=== PATIENT | male | born 1995 | race Caucasian/White ===

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

== ENCOUNTER 2018-05-03 17:09 | Emergency (ER) | payer OTHER ==
[~2018-05-03] VITALS: Ht 172.7 cm; Wt 99.8 kg
[2018-05-03 17:14] VITALS: Ht 172.7 cm; Wt 99.8 kg
[2018-05-03 19:21] VITALS: BP 136/74
== END 2018-05-03 19:21 | disposition home or self-care (01) ==
LOC: ED 17:09
DX: J03.90 Acute tonsillitis, unspecified (principal)
CPT/HCPCS: J0561; J7512

== ENCOUNTER 2018-05-21 20:15 | Emergency (ER) | payer OTHER ==
[~2018-05-21] VITALS: Ht 172.7 cm; Wt 99.8 kg
[2018-05-21 20:20] VITALS: Ht 172.7 cm; Wt 99.8 kg
[2018-05-21 22:18] VITALS: BP 140/81
== END 2018-05-21 22:18 | disposition home or self-care (01) ==
LOC: ED 20:15
DX: J20.8 Acute bronchitis due to other specified organisms (principal)